=== PATIENT | male | born 1985 | race Caucasian/White ===

== ENCOUNTER 2017-08-26 12:45 | Outpatient (CLI) | payer OTHER | END 2017-08-26 12:52 | disposition home or self-care (01) | LOC: MAMO-SONO 12:45 | DX: Z12.31 Encounter for screening mammogram for malignant neoplasm of breast (principal) ==

== ENCOUNTER 2017-09-17 14:38 | Outpatient (CLI) | payer OTHER | END 2017-09-17 15:55 | disposition home or self-care (01) | LOC: SONOGRAMA 14:38 | DX: E04.1 Nontoxic single thyroid nodule (principal) ==

== ENCOUNTER 2022-01-17 09:59 | Outpatient (CLI) | payer OTHER | END 2022-01-17 10:13 | disposition home or self-care (01) | LOC: MAMO-SONO 09:59 | PROVIDERS: ATTEND Obstetrics & Gynecology | DX: Z12.31 Encounter for screening mammogram for malignant neoplasm of breast (principal); N63.10 Unspecified lump in the right breast, unspecified quadrant; N63.20 Unspecified lump in the left breast, unspecified quadrant ==